=== PATIENT | male | born 1975 | race African-American/Black ===

== ENCOUNTER 2021-10-09 20:23 | Emergency (ER) | payer SELFPAY ==
--- NOTE | ~2021-10-09 | XR_ITS ---
EXAMINATION: XR ribs RT 2V w CXR 2V EXAM DATE: 10/09/2021 21:35 INDICATION: Right side chest pain X 1.5 Weeks, NKI, Pain Around T7-T8. TECHNIQUE: Frontal projection of the upper right ribs, frontal projection of the lower right ribs, ob lique projection of the right ribs, frontal and lateral chest x-ray(s) for interpretation. There is no prior study for comparison. FINDINGS: There are no displaced acute right rib fractures identified. There are no osteoblastic or osteolytic lesions identified. There is no soft tissue abnormality seen. No confluent consolidation , pneumothorax or pleural effusion suspected. Cardiomediastinal silhouette is normal. IMPRESSION: Unremarkable chest x-ray, right rib exam. Reviewed, dictated and finalized at location A. YS[facility] ANALYST
[2021-10-09 20:26] VITALS: BP 150/80; PULSE 82; RESP 16; TEMP 36.6; O2SAT 97
--- NOTE | 2021-10-09 21:24 | ECG_ITS ---
Measurements Intervals [place] Rate: 69 P: 42 SC: 139 QRS: 51 QRSD: 93 T: 250 QT: 395 QTc: 424 Interpretive Statements SINUS RHYTHM POSSIBLE LEFT ATRIAL ENLARGEMENT T WAVE ABNORMALITY IN ANTEROLAT/INF LEADS- CONSIDER ISCHEMIA ABNORMAL ECG Electronically Signed On 10-10-2021 5:58:01 SR. OPERATIONS MANAGER by True Almendarez D.O.
--- NOTE | 2021-10-09 21:25 | ED.GENADULT ---
HPI - General Adult General Chief complaint: Unspecified Stated complaint: right rib pain Time Seen by Provider: 10/09/21 21:15 History of Present Illness HPI narrative: Patient is a 46-year-old gentleman who presents the emergency department with chief complaint of right-sided chest pain. Patient reports for the last week and a half he has been having pleuritic pain on the right side of his chest reports is worse with inspiration and worse with movement. The patient denies any trauma reports that he does work by unloading of trucks and reports that the pain is worse with movement patient reports today got worse and his finally talked him into coming into the emergency department for evaluation. Patient is reports he has history of high blood pressure. Related Data Allergies Allergy/AdvReac Type Severity Reaction Status Date / Time shellfish derived Allergy Swelling Verified 10/09/21 20:53 of Lip/Tongue/Throat Review of Systems Review of Systems: A 10 system review of systems was completed on the patient and is negative except for what is stated in the HPI. Nursing and ancillary documentation was reviewed. PMFSH Comments Past medical history significant for hypertension Exam Narrative: GENERAL: Well-appearing, well-nourished, and in no acute distress. HEAD: Normocephalic, atraumatic. EYES: PERRLA and EOMI. ENT: Nares clear, no rhinorrhea or epistaxis. Mucous membranes moist. NECK: Supple. CHEST: Clear to auscultation. No respiratory distress. Tenderness to palpation in the right chest wall HEART: Regular rate and rhythm. No murmur heard. Normal peripheral pulses. ABDOMEN: Soft, nontender, nondistended, normal active bowel sounds. EXTREMITIES: Normal range of motion. No edema. SKIN: Warm, dry, no rash. NEURO: No focal deficits. Alert and oriented x3. PSYCH: Normal mood and affect. Course Vital Signs Vital signs: Vital Signs Temperature 36.6 C 10/09/21 20:26 Pulse Rate 82 10/09/21 20:26 Respiratory Rate 16 10/09/21 20:26 Blood Pressure 150/80 H 10/09/21 20:26 Pulse Oximetry 97 10/09/21 20:26 Temperature 36.6 C 10/09/21 20:26 Pulse Rate 82 10/09/21 20:26 Respiratory Rate 16 10/09/21 20:26 Blood Pressure 150/80 H 10/09/21 20:26 Pulse Oximetry 97 10/09/21 20:26 Medical Decision Making Vital Signs Vital Signs: Vital Signs Temperature 36.6 C 10/09/21 20:26 Pulse Rate 82 10/09/21 20:26 Respiratory Rate 16 10/09/21 20:26 Blood Pressure 150/80 H 10/09/21 20:26 Pulse Oximetry 97 10/09/21 20:26 Temperature 36.6 C 10/09/21 20:26 Pulse Rate 82 10/09/21 20:26 Respiratory Rate 16 10/09/21 20:26 Blood Pressure 150/80 H 10/09/21 20:26 Pulse Oximetry 97 10/09/21 20:26 Lab Data Result diagrams: 10/09/21 21:56 10/09/21 21:57 Labs: Lab Results 10/09/21 10/09/21 10/09/21 Range/Units 21:56 21:56 21:57 WBC 8.6 (4.5-10.0) K/mm3 RBC 5.08 (4.6-6.20) M/mm3 Hgb 13.9 L (14.0-18.0) g/dL Hct 40.6 L (42.0-52.0) % MCV 79.9 L (80-100) fl MCH 27.4 (26-34) pg MCHC 34.2 (32-36) g/dl RDW 13.8 (11.5-14.5) % Plt Count 306 (150-375) k/mm3 MPV 8.6 (7.4-10.4) fl Immature Gran % (Auto) 0.5 (0-0.5) % Neut % (Auto) 57.6 (45.5-73.1) % Lymph % (Auto) 32.6 (18.3-44.2) % [place] % (Auto) 6.9 (2.6-8.5) % Eos % (Auto) 1.9 (0-4.4) % Baso % (Auto) 0.5 (0.2-1.2) % Lymph # (Auto) 2.79 (0.9-3.2) K/mm3 [place] # (Auto) 0.6 (0.1-0.6) K/mm3 Eos # (Auto) 0.2 (0-0.3) K/mm3 Baso # (Auto) 0.0 (0.0-0.1) K/mm3 Abs Immat Gran (auto) 0.04 H (0.00-0.031) K/mm3 Absolute Neuts (auto) 5.0 (1.3-6.7) K/mm3 Absolute Nucleated RBC 0.0 (0.0-0.012) K/mm3 Nucleated RBC % 0.0 (0.0-0.2) % PT 12.3 (11.1-14.7) Seconds INR 0.9 APTT 30.8 (22.3-36.8) SECONDS D-Dimer 0.42 (<0.48) ug/mL Sodium 139 (137-145) mmol/
[2021-10-09] MEDS: KETOROLAC 30 MG/ML VIAL (*BKC) IV PUSH (22:01)
[2021-10-09 22:03] LABS: Basophils Percent Auto 0.5 % (0.2-1.2); Eosinophils Absolute Auto 0.2 K/mm3 (0-0.3); Eosinophils Percent Auto 1.9 % (0-4.4); Hematocrit 40.6 % (42.0-52.0); Hemoglobin 13.9 g/dL (14.0-18.0); Immature Granulocyte Absolute 0.04 K/mm3 (0.00-0.031); Immature Granulocyte Percent A 0.5 % (0-0.5); Lymphocytes Absolute Auto 2.79 K/mm3 (0.9-3.2); Lymphocytes Percent Auto 32.6 % (18.3-44.2); Mean Corpuscular HGB Conc 34.2 g/dl (32-36); Mean Corpuscular Hemoglobin 27.4 pg (26-34); Mean Corpuscular Volume 79.9 fl (80-100); Mean Platelet Volume 8.6 fl (7.4-10.4); Monocytes Absolute Auto 0.6 K/mm3 (0.1-0.6); Monocytes Percent Auto 6.9 % (2.6-8.5); Neutrophils Percent Auto 57.6 % (45.5-73.1); Platelet Count Result 306 k/mm3 (150-375); Red Blood Count 5.08 M/mm3 (4.6-6.20); Red Cell Distribution Width 13.8 % (11.5-14.5); White Blood Count 8.6 K/mm3 (4.5-10.0)
[2021-10-09 22:13] LABS: INR 0.9; Prothrombin Time 12.3 Seconds (11.1-14.7)
[2021-10-09 22:14] LABS: Partial Thromboplastin Time 30.8 SECONDS (22.3-36.8)
[2021-10-09 22:16] LABS: Alanine Aminotransferase 27 U/L (4-50); Albumin Level 4.3 g/dL (3.5-5.1); Alkaline Phosphatase 85 U/L (38-126); Anion Gap 8 mmol/L (8-16); Aspartate Amino Transferase 41 U/L (17-59); Bilirubin,Total 0.5 mg/dL (0.2-1.3); Blood Urea Nitrogen 18 mg/dL (9-20); Calcium 8.9 mg/dL (8.4-10.2); Carbon Dioxide 29 mmol/L (22-30); Chloride 102 mmol/L (98-107); Estimated CRCL calculation 97 ml/min; Estimated Glomerular Filt Rate > 60; Glucose 120 mg/dL (65-110); Lipase 140 U/L (23-300); Potassium 3.6 mmol/L (3.4-5.0); Sodium 139 mmol/L (137-145)
[2021-10-09 22:16] LABS: D Dimer 0.42 ug/mL (<0.48)
[2021-10-09 22:27] LABS: Troponin I < 0.012 ng/mL (0.000-0.034)
[2021-10-09 23:16] VITALS: BP 159/107; PULSE 67; RESP 16; TEMP 36.4; O2SAT 96
== END 2021-10-09 23:15 | disposition home or self-care (01) ==
PROVIDERS: Emergency Provider Emergency Medicine
DX: R07.89 Other chest pain (principal)
CPT/HCPCS: 36415; 71046; 71100; 80053; 83690; 84484; 85025; 85380; 85610; 85730; 93005; 96374; 99284; J1885